=== PATIENT | female | born 1975 | race Caucasian/White ===

== ENCOUNTER 2017-12-16 19:43 | Emergency (ER) | payer OTHER ==
[~2017-12-16 19:43] MED LIST: Iopamidol 370 76% 100 ML VIAL ONE
[2017-12-16 20:42] LABS: #Lymphocytes 0.9 thou/uL (1.20-3.40); #Monocytes 0.5 thou/uL (0.11-0.59); #Neutrophils 7.3 thou/uL (1.40-6.50); %Basophils 0.4 % (0.0-1.0); %Eosinophils 0.2 % (0.0-10.0); %Lymphocytes 9.9 % (21.0-51.0); %Neutrophils 83.5 % (42.0-75.0); Hemoglobin 14.8 g/dL (12.0-16.0); Mean Corpuscular Hemoglobin 30.6 pg (27.0-31.0); Mean Corpuscular Volume 87.3 fL (78.0-98.0); Platelet Count 220 thou/uL (130-400); RBC Distribution Width 11.9 % (11.5-14.5); Red Blood Cell (RBC) Count 4.85 mill/uL (4.20-5.40); White Blood Cell (WBC) Count 8.7 thou/uL (4.8-10.8)
[2017-12-16 20:56] LABS: ALT (SGPT) 20 U/L (8-55); AST (SGOT) 21 U/L (5-34); Albumin 4.5 g/dL (3.5-5.0); Alkaline Phosphatase 69 U/L (40-150); Anion Gap 17 mmol/L (10-20); BUN (Urea Nitrogen) 13 mg/dL (7.0-18.7); Bilirubin, Total 0.7 mg/dL (0.2-1.2); Calc. Creatinine Clearance 0 mL/min (70-130); Calcium 9.5 mg/dL (7.8-10.44); Carbon Dioxide 17 mmol/L (22-29); Chloride 107 mmol/L (98-107); Estimated GFR-MDRD 86; Glucose 105 mg/dL (70-105); Potassium 3.7 mmol/L (3.5-5.1); Protein, Total 7.5 g/dL (6.0-8.3); Sodium 137 mmol/L (136-145)
[2017-12-16] MEDS ORDERED: Lidocaine Viscous Sol 2% 15 ml UD Cup ONE (20:56)
[2017-12-16] MEDS ORDERED: Mag-Al Plus 1200 MG/1200 MG/120 MG/30 ML UDCUP ONE (20:56)
[2017-12-16 20:57] LABS: CKMB 0.5 ng/mL (0-6.6); Troponin I Less than 0.010 ng/mL (< 0.028)
--- NOTE | 2017-12-16 21:09 | CT ---
CTA OF THE THORAX UTILIZING IV CONTRAST AND PE PROTOCOL WITH 3D REFORMATTED IMAGES 12/16/17 INDICATIONS: 42-year-old female with long car trip, now with sudden onset of shortness of breath, chest pain, feve r, and tachycardia. FINDINGS: No central or segmental pulmonary embolus is present. Heart and great vessels appears within normal l imits. No air space consolidation, pleural effusion or pneumothorax is evident. No enlarged lymph nod es are evident. The visualized upper abdomen demonstrates fatty infiltration of the liver. No acute o sseous abnormality is noted. IMPRESSION: No central or segmental pulmonary embolus. POS: [facility]
== END 2017-12-16 22:05 | disposition home or self-care (01) ==
LOC: SCSER 19:43
DX: K21.0 Gastro-esophageal reflux disease with esophagitis (principal); R19.7 Diarrhea, unspecified; G47.30 Sleep apnea, unspecified; G43.909 Migraine, unspecified, not intractable, without status migrainosus; Z79.899 Other long term (current) drug therapy
CPT/HCPCS: 71275; 80053; 82553; 84484; 85025; 87040; 93005; 96360

== ENCOUNTER 2017-12-18 14:21 | Outpatient (CLI) | payer OTHER ==
--- NOTE | 2017-12-18 15:23 | CT ---
CT ABDOMEN AND PELVIS WITHOUT CONTRAST: Date: 12/18/17 HISTORY: Acute gastritis, nausea and vomiting. FINDINGS: Absence of oral and IV contrast reduces the sensitivity of exam, particularly for evaluation of solid organs and bowel. The lung bases are clear. No free air or free fluid is seen in the abdomen or pelvis. No calcified ga llstones are seen. No calculi noted in the kidneys, ureters, or the urinary bladder. No hydroureteron ephrosis seen on either side. Uterus is present. A normal appearing appendix is noted. No acute osseo us abnormalities are seen. IMPRESSION: No CT evidence of urinary tract calculi/obstruction or appendicitis. POS: [facility]
== END 2017-12-18 14:22 | disposition home or self-care (01) ==
LOC: CT 14:21
PROVIDERS: ATTEND Family Medicine
DX: R11.2 Nausea with vomiting, unspecified (principal); K29.01 Acute gastritis with bleeding
CPT/HCPCS: 74176

== ENCOUNTER 2017-12-24 08:11 | Day surgery (SDC) | payer OTHER ==
[2017-12-24] MEDS ORDERED: Fentanyl 100 MCG/2 ML VIAL ONE (12:22)
--- NOTE | 2017-12-24 13:49 | OP ---
DATE OF PROCEDURE: 12/24/2017 PROCEDURE: Esophagogastroduodenoscopy with biopsy and colonoscopy. PREOPERATIVE DIAGNOSIS: Epigastric abdominal pain and change in bowel habits PROCEDURE IN DETAIL: Informed consent was obtained from the patient. She was sedated with total int ravenous anesthesia. The bite block was placed and the endoscope was advanced easily to the second p ortion of the duodenum and retroflexion was performed in the stomach. The esophagus was normal. The GE junction was normal. The stomach had mild nonerosive erythematous patchy gastritis in the antrum . The remainder of the stomach was normal including retroflexed views. The pylorus and first and se cond portions of the duodenum were normal. Biopsies were taken from the second portion of the duoden um to rule out celiac disease. Biopsies were taken from the antrum and body of the stomach to rule o ut H. pylori. Patient was turned around. Rectal exam was performed and was normal. The preparation quality was excellent. The colonoscope was advanced to the terminal ileum without difficulty. The mucosa of the terminal ileum was normal. The ileocecal valve and appendiceal orifice were clearly id entified. The colonic mucosa was normal throughout. Retroflexed views in the rectum were normal. IMPRESSION: 1. Mild nonerosive gastritis in the antrum of the stomach. Biopsies were obtained to rule out Helic obacter pylori. 2. Otherwise normal esophagogastroduodenoscopy. Duodenal biopsies taken to rule out celiac disease. 3. Normal colonoscopy to the terminal ileum. RECOMMENDATIONS: 1. Await histopathology. 2. Ultrasound of the gallbladder to evaluate the epigastric pain that can radiate up towards her z[address]. 3. Follow up in GI clinic.
[2017-12-24] MEDS ORDERED: Ondansetron HCl/PF 4 MG/2 ML Vial ONE (14:56)
[2017-12-24] MEDS ORDERED: Lidocaine 1% PF 5 ML VIAL ONE (14:56)
[2017-12-24] MEDS ORDERED: PHENYLEPHRINE-NS 100 MCG/ML 10 ML SYRINGE ONE (14:56)
[2017-12-24] MEDS ORDERED: PROPOFOL 200 MG/20 ML VIAL ONE (14:56)
== END 2017-12-24 14:17 | disposition home or self-care (01) ==
LOC: SDC 08:11
PROVIDERS: ATTEND Internal Medicine Gastroenterology
PROC: 0DB98ZX Excision of Duodenum, Via Natural or Artificial Opening Endoscopic, Diagnostic (ICD-10-PCS; principal; 2017-12-24)
PROC: 0DJD8ZZ Inspection of Lower Intestinal Tract, Via Natural or Artificial Opening Endoscopic (ICD-10-PCS; principal; 2017-12-24)
PROC: 0DB68ZX Excision of Stomach, Via Natural or Artificial Opening Endoscopic, Diagnostic (ICD-10-PCS; principal; 2017-12-24)
DX: K29.50 Unspecified chronic gastritis without bleeding (principal); R19.5 Other fecal abnormalities; K21.9 Gastro-esophageal reflux disease without esophagitis; J45.909 Unspecified asthma, uncomplicated; G47.30 Sleep apnea, unspecified; Z79.899 Other long term (current) drug therapy; Z88.8 Allergy status to other drugs, medicaments and biological substances
CPT/HCPCS: 88305; 88312; J2001; J2405; J2704; J3010

== ENCOUNTER 2017-12-29 02:23 | Observation (INO) | payer OTHER ==
[2017-12-29] MEDS ORDERED: Morphine 4 MG/ML VIAL ONE ×2 (02:33→05:31)
[2017-12-29] MEDS ORDERED: Ondansetron HCl/PF 4 MG/2 ML Vial ONE (02:43)
[2017-12-29 02:50] LABS: #Basophils 0.1 thou/uL (0.0-0.2); #Eosinphils 0.2 thou/uL (0.0-0.7); #Lymphocytes 3.4 thou/uL (1.20-3.40); #Monocytes 0.6 thou/uL (0.11-0.59); #Neutrophils 3.1 thou/uL (1.40-6.50); %Basophils 1.7 % (0.0-1.0); %Eosinophils 2.3 % (0.0-10.0); %Lymphocytes 46.1 % (21.0-51.0); %Monocytes 7.7 % (0.0-10.0); %Neutrophils 42.2 % (42.0-75.0); Hemoglobin 13.8 g/dL (12.0-16.0); Mean Corpuscular Hemoglobin 32.6 pg (27.0-31.0); Mean Platelet Volume 7.7 fL (7.4-10.4); Platelet Count 251 thou/uL (130-400); RBC Distribution Width 12.2 % (11.5-14.5); Red Blood Cell (RBC) Count 4.25 mill/uL (4.20-5.40); White Blood Cell (WBC) Count 7.4 thou/uL (4.8-10.8)
[2017-12-29 03:12] LABS: Cardiac Risk 3.5 (Less than 4.5)
[2017-12-29 03:14] LABS: ALT (SGPT) 19 U/L (8-55); AST (SGOT) 18 U/L (5-34); Albumin 4.9 g/dL (3.5-5.0); Alkaline Phosphatase 71 U/L (40-150); Anion Gap 14 mmol/L (10-20); BUN (Urea Nitrogen) 14 mg/dL (7.0-18.7); Bilirubin, Total 0.5 mg/dL (0.2-1.2); Calc. Creatinine Clearance 0 mL/min (70-130); Calcium 9.6 mg/dL (7.8-10.44); Carbon Dioxide 25 mmol/L (22-29); Chloride 104 mmol/L (98-107); Estimated GFR-MDRD 76; Globulin 2.9 g/dL (2.4-3.5); Glucose 83 mg/dL (70-105); Lipase 77 U/L (8-78); Potassium 3.3 mmol/L (3.5-5.1); Protein, Total 7.8 g/dL (6.0-8.3); Sodium 140 mmol/L (136-145)
[2017-12-29 04:15] LABS: Bilirubin Negative (Negative); Blood, Urine Negative (Negative); Clarity CLOUDY (Clear); Glucose, Urine (Dipstick) Negative (Negative); Leukocyte Moderate (Negative); Nitrite Negative (Negative); Protein, Urine (Dipstick) Negative (Neg-Trace); Specific Gravity, Urine 1.017 (1.002-1.036); Urobilinogen 0.2 mg/dL (0.2-1.0)
[2017-12-29 04:17] LABS: Bacteria/HPF Rare-Few HPF (None Seen); Hyaline Casts/LPF 0-3 HYALINE CAST LPF (0-3 Hyaline); Pathc Cast-AUWi Flag 0.58 (0-2.49)
[2017-12-29 04:23] LABS: RBC/HPF None Seen HPF (0-3)
[2017-12-29] MEDS ORDERED: Sodium Chloride 0.9% 1,000 ML IV SCH (06:42)
[2017-12-29] MEDS ORDERED: Ondansetron ODT 4 MG TAB SL PRN (06:42)
[2017-12-29] MEDS ORDERED: Ondansetron HCl/PF 4 MG/2 ML Vial IVP PRN ×2 (06:42→10:03)
[2017-12-29] MEDS ORDERED: Morphine 4 MG/ML VIAL SLOW IVP PRN (06:44)
[2017-12-29 07:41] VITALS: BMI 31.3
--- NOTE | 2017-12-29 08:48 | ULT ---
PRELIMINARY REPORT/[facility]/EMERGENTY AFTER-HOURS PROCEDURE US Abdomen Limited, Right Upper Quadrant CLINICAL HISTORY: 42 years old, female; Pain and signs and symptoms; Nausea; Abdominal pain; Other: Epigastric to ruq p ain x 5 weeks TECHNIQUE: Real-time ultrasound of the right upper quadrant with image documentation. COMPARISON: No relevant prior studies available. FINDINGS: Liver: Mildly enlarged. No acute findings. No mass. No intrahepatic bile duct dilation. Gallbladder: No acute findings. No gallstones. Common bile duct: Unremarkable. Pancreas: Limited visualization due to bowel gas. Unremarkable as visualized. Right kidney: No acute findings. No stones. No solid mass. No hydronephrosis. IMPRESSION: No acute findings. Thank you for allowing us to participate in the care of your patient. Dictated and Authenticated by: Humberto Longoria MD 12/29/2017 5:28 AM Central Time ([place] & [place]) FINAL REPORT SONOGRAM RIGHT UPPER QUADRANT: DATE: 12/29/17. TIME: Performed on an emergency basis at 0313 hours. HISTORY: Right upper quadrant pain. FINDINGS: Agree with the preliminary report by Dr. Longoria from [facility]. No evidence of gallstones or acute biliary obstruction. POS: [facility]
[2017-12-29] MEDS ORDERED: HYDROcodone/Acetaminophen 5/325 mg Tablet PO PRN (10:03)
[2017-12-29] MEDS ORDERED: Acetaminophen 325 MG TAB PO PRN (10:03)
[2017-12-29] MEDS ORDERED: Ondansetron ODT 4 MG TAB PO PRN (10:03)
[2017-12-29] MEDS ORDERED: Calcium Carbonate 500 MG ChewTAB PO PRN (10:03)
[2017-12-29] MEDS ORDERED: Acetaminophen 650 MG Suppository PR PRN (10:03)
[2017-12-29] MEDS ORDERED: Pantoprazole 40 MG VIAL IVP SCH (10:45)
[2017-12-29] MEDS: Sodium Chloride 0.9% 1,000 ML IV SCH ×2 (11:36→23:22)
[2017-12-29] MEDS: Sucralfate 1 GM TAB PO SCH ×3 (15:38→22:06)
--- NOTE | 2017-12-29 16:20 | HP ---
DATE OF ADMISSION: 12/29/2017 PRIMARY CARE PHYSICIAN: Dr. Fabio Salazar. CHIEF COMPLAINT: Abdominal pain. HISTORY OF PRESENT ILLNESS: Ms. 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 She states the pain really began in the epigastric area about 5 weeks ago and felt like her stomach w as on fire, exacerbated when she eats. No change in bowel habits. She saw her primary care physicia n on 12/16/2017 and started on Pepcid. She has not tried any Tums. At that time, she started having fevers to low 100s that were not really responsive to Tylenol. She did have on and off headache dur ing that time. Her fever spiked to 102 and she presented to the emergency department for evaluation at [facility] Emergency Department. CT angiogram was done due to the possibility of PE as she has been driving back from [place] when this began and was negative for pulmonary embolus, saw p [facility] physician in followup. I sent her for CT scan of the abdomen and pelvis which was remark able only for a distended stomach about 2/3 size of her liver, so she was referred back to Dr. Mccollum. He changed to clear liquid diet and she will follow up with them about a week later on 12/22/2017. She was having decreased frequency and decreased size of bowel movements and was really unable to ea t. He set her up for EGD and colonoscopy. These were done 12/24/2017 and other than antral and mild gastritis, biopsies were taken. EGD and colonoscopy otherwise negative. She continued to have intermittent abdominal pain, but advanced her diet. On 12/28/2017 showed increased nausea, has really unable to eat including chicken broth, so she presented to the emergenc y department for evaluation on 12/28/2017. There she had an abdominal ultrasound done that was unremarkable and we were called for admission. Th e patient was accepted by the facility operations manager and held overnight. This morning, she continues to have int ermittent abdominal pain. No fevers or chills since early December. No diarrhea and no GI bleeding fr om above or below. No cough or sputum production. No chest pain or difficulty breathing. Abdominal pain is located in the epigastrium with mild radiation to the back. She has increased burning with when she attempts to eat. PAST MEDICAL HISTORY: 1. Hyperglycemia since she was a child with a negative workup sleep apnea on CPAP at home. 2. Endometriosis. Last flare was several years ago. 3. Migraine headaches with rare occurrence. 4. She had a flu vaccine last year. Tetanus shot was about a year ago. PAST SURGICAL HISTORY: Includes oophorectomy in 2008, tubal ligation in 2008, esophageal dilation ar ound 2014, gastric biopsy in 2014 and on 12/24/2017. HOME MEDICATIONS: 1. Imitrex p.r.n. 2. Provigil 400 mg p.o. daily. 3. Protonix 40 mg daily, new. She had been on Prevacid b.i.d. prior to that. ALLERGIES: LEXAPRO, causes lip swelling. FAMILY HISTORY: Negative for clotting or bleeding disorder. No immune dysfunction. She had a dad d ied at age 57 with gastric cancer. He had for about 10 years. Paternal grandfather in his 50s with renal carcinoma. Paternal grandmother had breast cancer and paternal aunt had liver cancer. REVIEW OF SYSTEMS: Twelve-point review of system was performed and negative for all systems except s tated as per HPI. PHYSICAL EXAMINATION: VITAL SIGNS: Temperature of my evaluation was 98.5, pulse 64, blood pressure 119/74, respiratory rat e 18, satting 97% on room air. GENERAL: She is awake, she is alert, she is oriented x3. She is a well-developed, well-nourished, o bese white female, appears to be in no acute distress. HEENT: Normocephalic, atraumatic. Pupils equal, round, react to light bilaterally, mucous membranes are moist. She has no visible lesions. No thrush. NECK: Supple. She has no lymphadenopathy, JVD, or thyromegaly. She has normal carotid upstrokes wi thout bruits. LUNGS: Clear, no wheeze, no rales or rhonchi. No follicular phase. CARDIOVASCULAR: Normal S1, S2. No S3, S4. No audible murmurs, no rubs. ABDOMEN: Soft, diffusely tender with having increased tenderness in the immediate epigastric area. She has no rebound, rigidity or guarding. She has normoactive bowel sounds present in all 4 quadrant s. EXTREMITIES: No cyanosis, no clubbing, no edema. She has 2+ dorsalis pedis, posterior tibial, and r adial pulses bilaterally. SKIN: Warm, moist, and well perfused. She has no rashes or lesions. MUSCULOSKELETAL: Normal to inspection. Large joints appear normal. There is no evidence of inflamm ation or palpable effusions. NEUROLOGIC: Cranial nerves II-XII grossly intact. She has no focal neurologic deficits. LABORATORY DATA: CBC showed a white count of 7.4, hemoglobin 13.8, hematocrit of 40.8, and platelet count is 251,000 with a normal differential. Chemistry shows sodium 140, potassium 3.3, chloride 104, bicarb 25, BUN 14, creatinine 0.82, glucose of 83, and calcium 9.6. Her liver functions are completely within normal limits. Triglycerides normal at 92, total cholesterol 214, LDL 134 and HDL 62. Lipase barely normal at 77. TSH 2.57. Urinalysis showed 7-10 epithelial cells that are grossly contaminated. RADIOGRAPHIC STUDIES: She had abdominal ultrasound done on 12/29/2017 that was normal. Review of biopsies from 12/24/2017 showed normal colon. She had mild nonerosive antral gastritis wit hout evidence of Helicobacter pylori. ASSESSMENT AND PLAN: 1. Abdominal pain, to be postprandial. There is some question of delayed gastric emptying. We will get a nuclear gastric emptying study, start her on Protonix 40 mg IV q.12 and add some Carafate and see how she does. Once she has the gastric emptying study done, we will restart her Reglan and I allegra l ask Dr. Mccollum's partner on-call to come and evaluate. I do not think she they did a repeat endosco py. She does had one a few days ago with the above findings. I do not think this represents a sphin cter of Oddi dysfunction. Liver functions are normal. There is certainly just a gastric outlet obst ruction and gastritis. The patient did relate this to restarting her expressive drinks about 5 weeks ago. 2. History of gastroesophageal reflux disease as above. 3. Obstructive sleep apnea, she can continue her CPAP when her family brings it. There was intermit tent hypoglycemia. Monitor for symptoms. 4. History of endometriosis, stable.
--- NOTE | 2017-12-29 16:20 | NM ---
RADIONUCLIDE GASTRIC EMPTYING SCAN: 12/29/17 HISTORY: Gastritis. RADIOPHARMACEUTICAL: 2 millicuries technetium 99m sulfur colloid are administered orally in scrambled eggs. FINDINGS/IMPRESSION: There is 13% emptying of the ingested gastric contents at one hour, 44% emptying two hours, 90% empty ing at three hours and 99% emptying at four hours. The calculated gastric emptying halftime measures 120 minutes. POS: [facility]
[2017-12-29] MEDS: Metoclopramide HCl 10 MG/2 ML VIAL IVP PRN (16:48)
[2017-12-29] MEDS: Pantoprazole 40 MG VIAL IVP SCH (22:06)
[2017-12-29] MEDS: Sodium Chloride 0.9% 20 ML ONE (22:06)
--- NOTE | 2017-12-30 01:18 | CON ---
DATE OF CONSULTATION: 12/29/2017 REASON FOR CONSULTATION: Abdominal pain, midepigastric abdominal pain. CONSULTING PHYSICIAN: Dr. Fabio Esquivel. HISTORY OF PRESENT ILLNESS: The patient is a 42-year-old female with past medical history of asthma, ovarian cyst, endometriosis, sleep apnea, and hyperglycemia presenting with complaints of abdominal pain. She states that she has been having increased mid epigastric/periumbilical abdominal pain that has been present for the last 6 weeks. This pain is characterized as a burning/pressure type pain w ill radiate to the right upper quadrant and right upper back. It is intermittent and will reach a se verity of approximately 4/10, but at its worst reach 10/10 in severity. Her pain seems to be exacerb ated by increased consumption of caffeine. With her most recent episode brought on by the increased consumption of espresso and so far has been alleviated with fasting state and Reglan administration. This has been associated with increased nausea, but no actual vomiting. She also endorses a weight loss of approximately 25 pounds over the last 6 months, but this was intentional and has not accelera chiara within the last month or two. She also endorses increased early satiety and dyspepsia/GERD sympt oms over the last 6 weeks associated with this midepigastric abdominal pain. With worsening of this abdominal pain, she was initially evaluated at urgent care clinic in [facility] with a CT scan or CT angiography negative for possible PE, but did show increased distention of the stomach, co ncerning for possible obstructive process. She subsequently followed up with Dr. Mccollum in the [facility] and underwent EGD on 12/24/2017, which showed mild nonerosive antral erythema with biopsies only showing mild chronic gastritis. Biopsies were negative for celiac disease at that point in time. Beto tovar ultimately underwent a right upper quadrant ultrasound on 12/29/2017, which showed a mildly enlarge d liver, but was otherwise normal with no evidence of biliary or gallbladder abnormalities. Currentl y, she denies any vomiting, subjective chills, hematemesis, melena, hematochezia, dysphagia, odynopha javon, or diarrhea. She has had some difficulty with having a bowel movement since her colonoscopy per formed on 12/24/2017. REVIEW OF SYSTEMS: A 10-category review of systems was obtained with all responses negative except f or the pertinent positives as listed in the HPI. PAST MEDICAL HISTORY: As per HPI. PAST SURGICAL HISTORY: Bilateral oophorectomy with bilateral tubal ligation, esophageal dilation wit h stricture in 2015. FAMILY HISTORY: Father diagnosed with gastric cancer at the age of 57. Her mother was also diagnose d with both pancreatitis and ulcerative colitis and she does have a paternal aunt that was diagnosed with chronic liver disease. SOCIAL HISTORY: She denies any tobacco, alcohol, or illicit drug use. OUTPATIENT MEDICATIONS: Reviewed. ALLERGIES: LEXAPRO. PHYSICAL EXAMINATION: VITAL SIGNS: Temperature of 98.2, pulse 49, blood pressure 107/66, respiratory rate 20, satting 100% on room air. GENERAL: Patient lying in bed in no acute distress. Alert and oriented x4. NECK: Supple. No JVD noted. CARDIOVASCULAR: Regular rate and rhythm with no discernible murmurs, gallops, or rubs. LUNGS: Clear to auscultation bilaterally with no discernible wheezes or rales. ABDOMEN: Normoactive bowel sounds, soft, nondistended. Tenderness to palpation in the midepigastric and left upper quadrants. EXTREMITIES: No cyanosis, clubbing, or edema. LABORATORY DATA: CBC with a white blood cell count of 7.4, hemoglobin 13.8, hematocrit 40.8, platele ts 251. Chemistry with a sodium of 140, potassium 3.3, chloride 104, CO2 of 25, BUN 14, creatinine 0 .82, glucose 83. AST 18, ALT 19, alkaline phosphatase 71, total bilirubin 0.5, albumin 4.9, lipase 7 7. IMAGING DATA: Abdominal ultrasound obtained on 12/29/2017 showed no acute findings. There was no ev idence of intrahepatic bile duct dilatation and no gallstones or acute findings within the gallbladde r. Gastric emptying study performed on 12/29/2017 showed 90% of the nuclear tracer emptying at 3 cordell rs and 99% emptying at 4 hours. ASSESSMENT AND PLAN: The patient is a 42-year-old female with past medical history of migraines, ast hma, endometriosis, sleep apnea, and hyperglycemia presenting with chronic abdominal pain. Chronic abdominal pain. The patient is presenting with the onset of midepigastric/periumbilical abdo palak pain that has been present for the last 6 weeks associated with early satiety and increased dys peptic type symptoms. She was initially seen and evaluated in the urgent care center prior to this admission and diagnosed with an enlarged stomach concerning for an outlet obstruction. She subsequently underwent both EGD a nd colonoscopy on 12/24/2017 with only findings of mild chronic gastritis and without evidence of out let obstruction or celiac disease. However, she was placed on Reglan initially at the urgent care ce nt given her gastric distention for a possible gastroparesis-type picture and did better while on t his medication. Given her current symptoms of increased abdominal pain and pressure within the mid e pigastric region, alleviation with Reglan it is still concerning for gastroparesis; however, she did undergo a gastric emptying study today, which did not show any evidence of gastroparesis with approxi mately 99% of the nuclear tracer emptying the stomach at 4 hours. At this point, the etiology of her abdominal pain is unclear, but seems to correlate more with a gastroparesis-type picture more than a nything else. Given negative upper endoscopy, right upper quadrant abdominal sound and relatively no rmal labs; however, differential could include gastritis, pancreatitis (less likely), gallbladder pat hology (less likely given current imaging), median arcuate ligament syndrome, SMA syndrome given weig ht loss over the last 6 months (less likely given the rate of weight loss over time) and/or small bow el pathology (less likely based on imaging). RECOMMENDATIONS: 1. We would continue patient on PPI 40 mg b.i.d. for possible acid reflux mediated symptoms. 2. We would continue patient on metoclopramide 10 mg t.i.d. for possible gastroparesis-type picture and symptom alleviation with this current regimen. 3. We would assume a gastroparesis-type diet with smaller more frequent meals throughout the day and intake of low residue foods. 4. We would consider discontinuation of Carafate in light of possible gastroparesis. 5. We would avoid narcotics and/or constipation, as this can exacerbate gastroparesis if present. 6. We would avoid all NSAIDs, as possible source of GI irritation. We will continue to follow. Please call with any questions.
[2017-12-30 05:19] LABS: #Basophils 0.1 thou/uL (0.0-0.2); #Eosinphils 0.2 thou/uL (0.0-0.7); #Lymphocytes 3.1 thou/uL (1.20-3.40); #Monocytes 0.6 thou/uL (0.11-0.59); #Neutrophils 2.4 thou/uL (1.40-6.50); %Basophils 1.4 % (0.0-1.0); %Eosinophils 2.8 % (0.0-10.0); %Lymphocytes 48.8 % (21.0-51.0); %Monocytes 9.3 % (0.0-10.0); %Neutrophils 37.7 % (42.0-75.0); Hemoglobin 12.2 g/dL (12.0-16.0); Mean Corpuscular HGB CONC 33.9 g/dL (32.0-36.0); Mean Corpuscular Hemoglobin 32.5 pg (27.0-31.0); Mean Corpuscular Volume 96.1 fL (78.0-98.0); Mean Platelet Volume 7.7 fL (7.4-10.4); Platelet Count 198 thou/uL (130-400); RBC Distribution Width 12.1 % (11.5-14.5); Red Blood Cell (RBC) Count 3.74 mill/uL (4.20-5.40); White Blood Cell (WBC) Count 6.3 thou/uL (4.8-10.8)
[2017-12-30 05:32] LABS: Anion Gap 13 mmol/L (10-20); BUN (Urea Nitrogen) 7 mg/dL (7.0-18.7); Calc. Creatinine Clearance 140 mL/min (70-130); Calcium 8.7 mg/dL (7.8-10.44); Carbon Dioxide 23 mmol/L (22-29); Chloride 107 mmol/L (98-107); Estimated GFR-MDRD 85; Glucose 80 mg/dL (70-105); Magnesium 1.8 mg/dL (1.6-2.6); Potassium 3.9 mmol/L (3.5-5.1); Sodium 139 mmol/L (136-145)
[2017-12-30] MEDS: Sodium Chloride 0.9% 1,000 ML IV SCH (08:34)
[2017-12-30] MEDS: Sucralfate 1 GM TAB PO SCH (08:35)
[2017-12-30] MEDS: Pantoprazole 40 MG VIAL IVP SCH (08:36)
[2017-12-30] MEDS: Sodium Chloride 0.9% 20 ML ONE (08:36)
[2017-12-30] MEDS: Metoclopramide HCl 10 MG/2 ML VIAL IVP PRN (08:41)
[2017-12-30] MEDS ORDERED: Fluticasone Propionate Nasal Spray 16 gm Bottle NASAL SCH (09:00)
[2017-12-30] MEDS: Metoclopramide HCl 10 MG TAB PO SCH ×2 (11:41→14:04)
[2017-12-30 12:28] VITALS: TEMP 98.3
--- NOTE | 2017-12-30 14:42 | DIS ---
DATE OF ADMISSION: 12/29/2017 DATE OF DISCHARGE: 12/30/2017 PRIMARY CARE PHYSICIAN: Dr. Fabio Salazar. BATTALION FIRE CHIEF: Dr. Shlomo Mccollum. DISCHARGE DIAGNOSES: 1. Non-diabetic gastroparesis. 2. Mild antral gastritis. 3. Delayed gastric emptying. 4. Epigastric abdominal pain. 5. Gastroesophageal reflux disease, chronic. CONSULTATIONS: GI, Dr. Osorio. PROCEDURES: Nuclear medicine gastric emptying study which was fairly normal. HISTORY AND PHYSICAL: Ms. Elder is a 42-year-old female who presented to the emergency [facility] after 5 weeks of increasing abdominal pain. Recent workup, it showed a largely distended stomach, so she has been placed on Reglan with some improvement. She underwent endoscopy 5 days prior to admi ssion that showed mild nonerosive antral gastritis, negative for H. pylori. In the emergency department, she was unable to really eat due to pain and we were subsequently called for admission. HOSPITAL COURSE: The patient was seen and examined by me the following morning and she was accepted by the plant and machinery valuer. She was feeling better. She was placed initially on Carafate, IV Protonix b.i.d. , and IV Reglan. Gastric emptying study was obtained prior to Reglan starting that was fairly normal , but she was seen by GI who agreed with the plan. She tolerated a clear liquid diet that evening an d the following morning again. She was transitioned to p.o. Protonix and Reglan and Carafate was sto pped. She was advanced to diet as tolerated and tolerated a regular lunch and was stable for dischar ge with outpatient followup. Pain was markedly improved. PHYSICAL EXAMINATION: The patient was seen and examined on the day of discharge. Discharge plan and disposition were discussed with the patient face to face at the bedside. DISCHARGE MEDICATIONS: 1. New prescriptions; Reglan 10 mg p.o. q.i.d., prescription for 120 tablets with 2 refills sent. 2. Protonix 40 mg p.o. b.i.d., prescription for 60 tablets, 2 refills sent. HOME MEDICINES: Continue, 1. Provigil 40 mg daily. 2. Flonase p.r.n. 3. Imitrex p.r.n. 4. Phenergan DM syrup p.r.n. FOLLOWUP APPOINTMENTS: 1. Primary care physician within a week. 2. Dr. Mccollum within 2-3 weeks. DISCHARGE ACTIVITY: As tolerated. DISCHARGE DIET: Heart healthy, bland diet recommended. DISCHARGE CONDITION: Stable. DISPOSITION: Being discharged to private vehicle to home.
[2017-12-30 17:27] VITALS: BP 111/60
== END 2017-12-30 17:05 | disposition home or self-care (01) ==
LOC: ERS 02:23 → 3SE 05:49
PROVIDERS: ADMIT Hospitalist; ATTEND Hospitalist
DX: K31.84 Gastroparesis (principal); K29.60 Other gastritis without bleeding; K30 Functional dyspepsia; G43.909 Migraine, unspecified, not intractable, without status migrainosus; N80.9 Endometriosis, unspecified; K21.9 Gastro-esophageal reflux disease without esophagitis; G47.33 Obstructive sleep apnea (adult) (pediatric); J45.909 Unspecified asthma, uncomplicated; R73.9 Hyperglycemia, unspecified; Z79.899 Other long term (current) drug therapy; Z88.8 Allergy status to other drugs, medicaments and biological substances; Z99.89 Dependence on other enabling machines and devices
CPT/HCPCS: 36415; 76705; 78264; 80048; 80053; 80061; 81003; 81015; 82150; 83690; 83735; 84443; 85025; 96361; 96374; 96375; 96376; A4216; A9541; C9113; G0378; J2270; J2405; J2765